=== PATIENT | female | born 1950 | race Caucasian/White ===

== ENCOUNTER 2017-05-19 22:04 | Inpatient (IN) | payer OTHER ==
[~2017-05-19] VITALS: Ht 152.4 cm; Wt 83.9 kg
[~2017-05-19 22:04] MED LIST: ABILIFY 5 MG TAB5 MG PO; ALEVE220 MG PO; BAYER CHEWABLE81 MG PO; CREON DR 12,001 EACH PO; CRESTOR5 MG PO; CYMBALTA60 MG PO; FENTANYL PATCH75 MCG TRANSDERM; FUROSEMIDE 20 M20 M1 PO; HYDROCHLOROTHIA25 M2 PO; HYDROCODONE-AP1 EAC6 PO; HYDROCODONE-APA1 TA1 PO; LIDODERM1 EACH TRANSDERM; MYRBETRIQ25 MG PO; NAPROSYN500 MG PO; NEURONTIN100 MG PO; NORCO 7.5-3251 EACH PO; OMEPRAZOLE20 M2 PO; OXYCODONE HCL10 MG PO; POTASSIUM20 PO; ROBAXIN 750 MG750 M1 PO; VITAMIN D1000 UNI1 PO
[2017-05-19 22:08] VITALS: BP 123/78
[2017-05-19] MEDS ORDERED: LEVAQUIN 500 M500 M2 (22:26)
[2017-05-19 22:53] LABS: HEMATOCRIT 44.1 % (37.0-47.0); MCHC 34.1 g/dL (28.0-37.0); MCV 99.6 fL (80.0-100.0); MPV 8.4 fl. (7.2-11.1); NUCLEATED RBCS 0 /100WBC; PLATELET COUNT* 132 thou/uL (150-400); RBC 4.42 mil/uL (4.20-5.00); RDW-CV 14.2 % (10.5-14.5); WBC 4.2 thou/uL (4.0-11.0)
[2017-05-19 23:09] LABS: INFLUENZA A ANTIGEN None Detected (None Detect); INFLUENZA B ANTIGEN None Detected (None Detect)
[2017-05-19 23:17] LABS: NT-PRO BRAIN NAT PEPTIDE 108 pg/mL (<300); TROPONIN-I LEVEL <0.06 ng/mL (<0.06)
[2017-05-19 23:28] LABS: ANION GAP 6 mmol/L (7-16); BUN 12 mg/dL (7-18); CALCIUM 9.9 mg/dL (8.5-10.1); CHLORIDE 102 mmol/L (98-107); CO2 29 mmol/L (21-32); CREATININE 0.8 mg/dL (0.6-1.3); GLUCOSE 103 mg/dL (70-99); POTASSIUM 4.1 mmol/L (3.5-5.1); SODIUM 137 mmol/L (136-145)
[2017-05-19 23:42] LABS: ALBUMIN 3.2 g/dL (3.4-5.0); ALKALINE PHOSPHATASE 71 U/L (46-116); SGOT 18 U/L (15-37); SGPT 16 U/L (30-65); TOTAL BILIRUBIN 0.4 mg/dL (<0.1-1.0); TOTAL PROTEIN 6.2 g/dL (6.4-8.2)
[2017-05-19 23:43] LABS: URINE BILIRUBIN NEGATIVE (Negative); URINE BLOOD 1+ (Negative); URINE CLARITY CLEAR; URINE COLOR STRAW; URINE GLUCOSE-RANDOM NEGATIVE (Negative); URINE KETONES NEGATIVE (Negative); URINE LEUKOCYTES-REFLEX NEGATIVE (Negative); URINE NITRITE-REFLEX NEGATIVE (Negative); URINE PROTEIN NEGATIVE (Negative); URINE UROBILINOGEN 0.2 E.U./dl (0.2-1.0)
[2017-05-20 00:07] LABS: ABSOLUTE LYMPHOCYTES 0.3 thou/uL (0.8-5.3); ABSOLUTE MONOCYTES 0.2 thou/uL (0.0-1.2); ABSOLUTE NEUTROPHILS 3.7 thou/uL (1.6-8.1)
[2017-05-20 00:12] LABS: PLATELET ESTIMATE DECREASED
[2017-05-20 00:14] LABS: CASTS None Seen /LPF (None Seen); SQUAMOUS 4-10 Moderate /LPF (0-3)
[2017-05-20 00:15] LABS: CRYSTALS None Seen /LPF (None Seen); URINE RBC 3-10 Few /HPF (0-2); URINE WBC-REFLEX None Seen /HPF (0-5)
[2017-05-20 02:50] LABS: ABSOLUTE LYMPHOCYTES 0.4 thou/uL (0.8-5.3); ABSOLUTE MONOCYTES 0.1 thou/uL (0.0-1.2); ABSOLUTE NEUTROPHILS 4.7 thou/uL (1.6-8.1); BASOPHILS 0.4 %; HEMATOCRIT 42.9 % (37.0-47.0); HEMOGLOBIN 14.6 gm/dL (12.0-15.0); LYMPHOCYTES 7.1 %; MCH 34.1 pg (26.0-34.0); MCV 100.2 fL (80.0-100.0); MONOCYTES 2.5 %; MPV 8.7 fl. (7.2-11.1); NUCLEATED RBCS 0 /100WBC; PLATELET COUNT* 132 thou/uL (150-400); RBC 4.29 mil/uL (4.20-5.00); RDW-CV 14.2 % (10.5-14.5); WBC 5.2 thou/uL (4.0-11.0)
[2017-05-20 03:03] LABS: CALCIUM 9.7 mg/dL (8.5-10.1); CREATININE 0.8 mg/dL (0.6-1.3); POTASSIUM 3.4 mmol/L (3.5-5.1)
[2017-05-20 03:07] LABS: ALBUMIN 3.1 g/dL (3.4-5.0); TOTAL BILIRUBIN 0.3 mg/dL (<0.1-1.0); TOTAL PROTEIN 6.3 g/dL (6.4-8.2)
[2017-05-20 03:46] VITALS: BP 125/66
[2017-05-20 07:23] VITALS: BP 102/58
[2017-05-20 08:32] VITALS: BP 112/66
[2017-05-20 09:02] VITALS: BP 112/66
--- NOTE | 2017-05-20 09:14 | NUR ---
PATIENT ADMITTED FROM ER TO ROOM 101. ALERT AND ORIENTED. DENIES PAIN CURRENTLY BUT HAS BEEN HAVING BACK PAIN. O2 AT 2L. SAT 95%. VSS. AMBULATED STANDBY ASSIST TO BATHROOM AND VOIDED. BREAKFAST ORDERED. ADMISSION HISTORY AND ASSESSMENT CHARTED. ORIENTED TO ROOM AND BED CONTROLS. CALL LIGHT WITHIN REACH. WILL CONTINUE TO MONITOR.
--- NOTE | 2017-05-20 11:15 | NUR ---
PATIENTS DAUGHTER BROUGHT HER HOME MEDS AND GAVE THEM TO PATIENT WITHOUT NURING KNOWING. DAUGHTER INSTRUCTED TO TAKE MEDICATIONS HOME.
--- NOTE | 2017-05-20 16:33 | NUR ---
PATIENT REMAINS ALERT AND ORIENTED. BACK PAIN CONTROLLED WITH OXYCODONE. O2 AT 2L. SOB WITH EXERTION. SAT 93% ON 2L. USING BSC DUE TO SOB. IVF INFUSING ORDERED. LOW GRADE TEMP THIS EVENING 99.4. TOLERATING MEALS. SITTING EDGE OF BED VISITING WITH FAMILY. CALL LIGHT WITHIN REACH. WILL CONTINUE TO MONITOR.
--- NOTE | 2017-05-20 16:36 | EKG ---
[place] [address] ELECTROCARDIOGRAM REPORT Name: CASSANDRADMITRY Waldo Room: [address] ADM IN [facility].#: [id number] Admission: 05/20/17 Attend Phys: Shreya Santana MD Discharge: Date of : 52 Report #: [id number] THIS REPORT FOR: //name// 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: : 1950 Requested By: Lizette Nguyen Order Number: [id number] MD: Lawson Mauro Measurements Intervals [place] Rate: 89 P: 52 NE: 161 QRS: 55 QRSD: 95 T: 52 QT: 361 QTc: 440 Interpretive Statements Sinus rhythm Borderline low voltage, extremity leads Compared to ECG 01/03/2016 15:39:40 No significant changes Electronically Signed On 05-20-2017 16:36:31 D[employer]ER [employer]AMP[employer] by Lawson Mauro [email or web address] <ELECTRONICALLY SIGNED> By: Lawson Mauro MD, [facility] 05/20/17 1636 [id number] [id number] Lawson Mauro MD, FAC /EPI
[2017-05-20 16:51] VITALS: BP 118/74
[2017-05-20 21:15] VITALS: BP 117/69
[2017-05-21 00:11] VITALS: BP 123/82
[2017-05-21 03:55] VITALS: BP 140/69
[2017-05-21 04:47] LABS: ABSOLUTE LYMPHOCYTES 0.9 thou/uL (0.8-5.3); ABSOLUTE MONOCYTES 0.4 thou/uL (0.0-1.2); ABSOLUTE NEUTROPHILS 6.6 thou/uL (1.6-8.1); BASOPHILS 0.1 %; HEMATOCRIT 43.4 % (37.0-47.0); HEMOGLOBIN 14.9 gm/dL (12.0-15.0); LYMPHOCYTES 10.9 %; MCH 34.1 pg (26.0-34.0); MCHC 34.4 g/dL (28.0-37.0); MCV 99.2 fL (80.0-100.0); MONOCYTES 4.9 %; NUCLEATED RBCS 0 /100WBC; PLATELET COUNT* 133 thou/uL (150-400); POLYS 84.1 %; RBC 4.37 mil/uL (4.20-5.00); RDW-CV 14.4 % (10.5-14.5); WBC 7.8 thou/uL (4.0-11.0)
[2017-05-21 04:51] LABS: CALCIUM 9.9 mg/dL (8.5-10.1); CREATININE 0.7 mg/dL (0.6-1.3); POTASSIUM 4.4 mmol/L (3.5-5.1)
--- NOTE | 2017-05-21 04:58 | NUR ---
PATIENT ALERT AND ORIENTED. VITALS STABLE. ON 3.5 LITERS OF OXYGEN. STATES SOB WITH EXERTION. VOIDS PER BSC. OXYCODONE GIVEN FOR CHRONIC BACK PAIN. NONPRODUCTIVE COUGH. RIGHT FOREARM IV, SALINE LOCKED. HOURLY ROUNDS. NURSING WILL CONTINUE TO MONITOR.
[2017-05-21 08:00] VITALS: BP 121/74
[2017-05-21 16:25] VITALS: BP 109/71
--- NOTE | 2017-05-21 19:44 | NUR ---
PATIENT REMAINED ALERT AND ORIENTED X'S 4. VITAL SIGNS AND SPO2 STABLE. IV CLEAN, FLUSHING. SKIN LOOKS GOOD. TOLERATED DIET, NO NAUSEA AND VOMITING. BREATHING TREATMENTS COMPLETED. CALL LIGHT WITHIN REACH. WILL CONTINUE TO MONITOR.
[2017-05-22 03:37] VITALS: BP 120/74
[2017-05-22 03:42] LABS: ABSOLUTE LYMPHOCYTES 0.6 thou/uL (0.8-5.3); ABSOLUTE MONOCYTES 0.3 thou/uL (0.0-1.2); BASOPHILS 0.1 %; HEMATOCRIT 43.2 % (37.0-47.0); HEMOGLOBIN 14.9 gm/dL (12.0-15.0); LYMPHOCYTES 8.6 %; MCH 33.9 pg (26.0-34.0); MCHC 34.6 g/dL (28.0-37.0); MCV 97.9 fL (80.0-100.0); MONOCYTES 4.2 %; MPV 8.9 fl. (7.2-11.1); NUCLEATED RBCS 0 /100WBC; PLATELET COUNT* 154 thou/uL (150-400); POLYS 87.1 %; RBC 4.41 mil/uL (4.20-5.00); RDW-CV 13.9 % (10.5-14.5); WBC 6.9 thou/uL (4.0-11.0)
[2017-05-22 03:52] LABS: CALCIUM 10.6 mg/dL (8.5-10.1); CREATININE 0.8 mg/dL (0.6-1.3); POTASSIUM 5.2 mmol/L (3.5-5.1)
--- NOTE | 2017-05-22 04:41 | NUR ---
PATIENT ALERT AND ORIENTED X4. MEDICATED FOR PAIN X1 WITH PARTIAL EFFECT REPORTED. UP AD NEEL. VITALS STABLE ON 3.5L O2 NC. WILL CONTINUE TO MONITOR.
[2017-05-22 08:05] VITALS: BP 122/75
--- NOTE | 2017-05-22 12:27 | CON ---
[address] [address] CONSULTATION Name: DMITRY TRUJILLO Room: [address] IN .R.#: [id number] Admission: 05/20/17 Attend Phys: Shreya Santana MD Discharge: Date of : 52 Report #: [id number] THIS REPORT FOR: //name// CC: Magen Santana REQUESTING PHYSICIAN: Dr. Magen Tobias. REASON FOR CONSULTATION: COPD exacerbation, possible pneumonia. DISCUSSION: The patient is a 67-year-old woman who carries a diagnosis of COPD. She has a long history of ongoing tobacco abuse. She became ill over the last week or so, had developed cough. She was seen in Dr. Hyde' office and thought she had pneumonia. She was given antibiotics. Arrangements were also made for her to get a nebulizer. She did get the nebulizer, but did not yet picker tender helper the medication for the machine. She became extremely dyspneic, was having trouble breathing to the point she was afraid to go to sleep, so she presented to the Emergency Room on the evening of 05/19/2017. She was evaluated there. Subsequently, was admitted. Today, she is already feeling much better. She has a long history of tobacco abuse. She continued to smoke at least a pack of cigarettes per day. There are other smokers at home as well. She has never had any spirometry or PFTs. She notes at baseline she does have some dyspnea with exertion and some occasional cough. However, she has not felt like it has kept her from doing activities that she wanted to do. 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 She has had the Pneumovax, had the Prevnar 13 last month and has had the flu shot for this season. She has had no recent travel, but she does know one of her coworkers was ill with pneumonia last month. There is a dog at home, but no exotic pets. She was out visiting in [place] a couple of months ago when she went to visit her brother. Her history is also remarkable for obstructive sleep apnea. She has been on CPAP for years. She notes she originally had seen me in the office probably at least 15 years ago at which time her original sleep study was done. She has been compliant with using her CPAP. She went without insurance for several years and did not have one during that time, but she was able to get back on it again. She did have a sleep study done last summer. PAST MEDICAL HISTORY: Besides the COPD and obstructive sleep apnea (per prior sleep study is supposed to be on 9 cm of water pressure with O2 at 1.5 liters) remarkable for history of GERD, bilateral knee replacements, lumbar laminectomies, hysterectomy, cholecystectomy and anxiety. She did have a recent cardiac evaluation done with Dr. [place] [address] CONSULTATION Name: CASSANDRARAFAELDMITRY L Room: [address] IN [facility]#: [id number] Admission: 05/20/17 Attend Phys: Shreya Santana MD Discharge: Date of : 52 Report #: [id number] SOCIAL HISTORY: Smoker as noted. 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 FAMILY HISTORY: Positive for heart disease, strokes as well as COPD. REVIEW OF SYSTEMS: Of note, positives above. She denies any recent GI symptoms with this acute illness. May have had low-grade fevers at home, just over 99. No syncopal episodes. No chest pain. No hemoptysis, no blood in her stools. Weight has been stable. She does note she feels much better when she is able to sleep with her CPAP. However, she became acutely ill, was more short of breath, the CPAP did not offer her much benefit, she tried to use acutely. PHYSICAL EXAMINATION: GENERAL APPEARANCE: Woman who looks stated age. Alert, cooperative, in no acute distress. HEENT: Head is normocephalic. Sclerae are nonicteric. Mucous membranes are moist. NECK: Negative for adenopathy. No JVD is noted. HEART: Regular rate and rhythm. No murmur or gallop is heard. LUNGS: Sounds are little distant. Lungs show breath sounds are mildly diminished with a prolonged expiratory phase. Bibasilar crackles are heard. No wheezing is heard. There is no dullness to percussion. No E to A changes. ABDOMEN: Soft, without appreciable hepatosplenomegaly. EXTREMITIES: She has no clubbing. Lower extremities are negative for edema. No calf tenderness. She does have well-healed scars present over both knees bilaterally. SKIN: Warm and dry. NEUROLOGIC: She is alert and oriented x 3. Moving all extremities well. Affect appears normal and judgment appears intact. LABORATORY AND X-RAY FINDINGS: Chest x-ray was reviewed. No acute findings are noted. She had a CT angiogram done of her chest. Motion artifact is noted. No definite pulmonary emboli is seen. Does have some very mild ground glass opacities noted primarily on the right side. It is not clear how much is motion artifact, fibrosis or some acute infiltrates. Her influenza screen was negative. No respiratory viral panel has been done. Potassium 4.4, BUN of 10, creatinine of 0.7, albumin was 3.1. ProBNP 108. White blood cell count 7800, hemoglobin 14.9, hematocrit 43.4, platelets 133,000. Blood cultures have been sent. Those results are negative to date. Urine culture is pending as well. A plain UA had showed 10-30 bacteria. IMPRESSION: 1. Lower respiratory tract infection with chronic obstructive pulmonary disease exacerbation. 2. Hypoxic respiratory failure. 3. Chronic obstructive pulmonary disease, severity [place] [address] CONSULTATION Name: DMITRY TRUJILLO Room: [address] IN [facility]#: [id number] Admission: 05/20/17 Attend Phys: Shreya Santana MD Discharge: Date of : 52 Report #: [id number] probably has [id number] disease. 4. Ongoing tobacco abuse. 5. Obstructive sleep apnea. She has been compliant with CPAP at home. RECOMMENDATIONS: 1. I agree with current regimen. She is receiving IV steroids, neb treatments every 4 hours. Agree with Levaquin. 2. Wean O2 as able. 3. Someone is bringing in her home CPAP unit. Continue sleep with that at night. 4. If improvement continues, can hopefully be discharged in the next 1-2 days. 5. Long-term smoking cessation is imperative. 6. Consider full pulmonary function studies in the future once she is over this acute event. 7. She can also have followup in our office in the future as well. Discussed with her. <ELECTRONICALLY SIGNED> By: Elba Verduzco MD 05/22/17 1227 1142 [id number] Paulson MD /nt
--- NOTE | 2017-05-22 12:45 | NUR ---
PATIENT LEFT UNIT BY WHEELCHAIR WITH TRANSPORTATION AT 1245 FOR [facility]. IV DC'D. ALL BELONGINGS LEFT WITH PATIENT. EDUCATED PATIENT AND DAUGHTER ON DISCHARGE INSTRUCTIONS AND NEW MED SCRIPTS. PATIENT AND DAUGHTER VERBALIZED UNDERSTANDING.
--- NOTE | 2017-05-22 14:04 | NUR ---
P.T. ORDERS RECEIVED. CHART REVIEWED. NSG NOTES INDICATE PT UP AD NEEL. NSG AND TEMPER MILL OPERATOR CONFIRMED SAME. TEMPER MILL OPERATOR REPORTED PT RECENTLY AMB OUT OF VENDING MACHINES, TEMPER MILL OPERATOR ASSISTED WITH O2. NO ACUTE P.T. INTERVENTION INDICATED.
--- NOTE | 2017-05-22 15:01 | NUR ---
ORDERS RECEIVED 05/22/17 FOR OT EVAL AND TREAT, PATIENT IS UP IN ROOM AD NEEL WITH NO DIFFICULTY. PER P.T. AND NURSING, NO SKILLED SERVICES INDICATED. SKILLED OT TO BE DISCHARGED AT THIS TIME, THANK YOU FOR THIS REFERRAL.
--- NOTE | 2017-05-22 16:33 | NUR ---
PATIENT REMAINED ALERT AND ORIENTED X'S 4. VITAL SIGNS AND SPO2 STABLE. IV CLEAN, FLUSHING. RECIEVED BREATHING TREATMENTS. TOLEREATED DIET, NO NAUSEA AND VOMITING. VOIDED AND PASSED BM WITHOUT ISSUE. WALKED THE HALLS MULTIPLE TIMES TODAY. COMPLETED HOURLY ROUNDING. CALL LIGHT WITHIN REACH. WILL CONTINUE TO MONITOR.
[2017-05-22 16:52] VITALS: BP 136/87
--- NOTE | 2017-05-22 17:05 | NUR ---
CM ASSESSMENT: Pt is A&O. Resides at home with friends. Independent with ADLs, continues to cook, clean, drive, work outside of the home. Pt has o2 with her cpap, and neb at home through [employer]. Hx of HH. No hx of Snf. Pt states that she is scheduled to have an ex ox tomorrow to determine if she will need o2 with activity. Pt is checking with her employer to determine if she will be able to return with o2, if qualified. Goal is to return home. Following.
[2017-05-22 23:58] VITALS: BP 119/75
--- NOTE | 2017-05-23 04:00 | NUR ---
PATIENT RESTING QUIETLY THIS AM ON HOURLY ROUNDS. UP AD NEEL IN HALLWAYS, TOLERATED WELL. MEDICATED FOR BACK PAIN X1 PARTIAL EFFECT REPORTED. VITALS SIGNS STABLE. WILL CONTINUE TO MONITOR.
[2017-05-23 04:18] VITALS: BP 153/58
[2017-05-23 08:00] VITALS: BP 105/65
[2017-05-23] MEDS ORDERED: PREDNISONE 10 M10 MG PO (11:34)
[2017-05-23 11:46] VITALS: BP 105/65
--- NOTE | 2017-05-23 14:09 | NUR ---
PATIENT LEFT UNIT BY WHEELCHAIR WITH NURSING STAFF AT 1400. IV DC'D. EDUCATED PATIENT AND ON NEW MED SCRIPTS AND DISCHARGE INSTRUCTIONS. PATIENT AND VERBALIZED UNDERSTANDING. ALL BELONGINGS LEFT WITH PATIENT.
[2017-05-23 14:10] VITALS: BP 105/65
[2017-05-27 14:09] LABS: ADENOVIRUS Negative (Negative); INFLUENZA A Positive (Negative); INFLUENZA B Negative (Negative); METAPNEUMOVIRUS Negative (Negative); PARAINFLUENZA 1 Negative (Negative); PARAINFLUENZA 2 Negative (Negative); PARAINFLUENZA 3 Negative (Negative); RHINOVIRUS Negative (Negative); RSV A Negative (Negative); RSV B Negative (Negative)
== END 2017-05-23 14:11 | disposition home or self-care (01) | DRG 177 ==
LOC: M.ERS 22:04 → M.TBA-ER 05-20 01:02 → M.ORTHSURG 05-20 01:02
PROVIDERS: Emergency Medicine; Internal Medicine; Internal Medicine Pulmonary Disease; ADMIT Internal Medicine
DX: J15.6 Pneumonia due to other Gram-negative bacteria (principal); J96.21 Acute and chronic respiratory failure with hypoxia; J44.1 Chronic obstructive pulmonary disease with (acute) exacerbation; J44.0 Chronic obstructive pulmonary disease with (acute) lower respiratory infection; G47.33 Obstructive sleep apnea (adult) (pediatric); F17.210 Nicotine dependence, cigarettes, uncomplicated; J40 Bronchitis, not specified as acute or chronic; M19.90 Unspecified osteoarthritis, unspecified site; Z96.653 Presence of artificial knee joint, bilateral; Z90.49 Acquired absence of other specified parts of digestive tract; Z90.710 Acquired absence of both cervix and uterus; Z79.2 Long term (current) use of antibiotics; Z79.899 Other long term (current) drug therapy; Z79.1 Long term (current) use of non-steroidal anti-inflammatories (NSAID); Z79.82 Long term (current) use of aspirin; Z82.49 Family history of ischemic heart disease and other diseases of the circulatory system; Z82.3 Family history of stroke; Z82.5 Family history of asthma and other chronic lower respiratory diseases

== ENCOUNTER → 2017-06-18 | Outpatient (CLI) | payer OTHER ==
[~2017-06-18] MED LIST changes: +LEVAQUIN 500 M500 M2; +PREDNISONE 10 M10 MG PO
--- NOTE | 2017-06-23 07:21 | PAINCON ---
[facility] [address] [place] [address] PAIN MANAGEMENT CONSULTATION Name: CASSANDRADMITRY Waldo [id number] Admission: 06/18/17 Attend Phys: Inez Gibbons Discharge: Date of : 52 Report #: [id number] THIS REPORT FOR: //name// CC: Madeleine Booker The patient is a pleasant 67-year-old female prior seen in the pain clinic back in March. We did a left SI joint injection with good improvement of baseline pain; in fact she notes she was nearly pain free until she fell several weeks after that striking her left hip. She has had ongoing pain in this area since. In the interval since we saw her, she was hospitalized 05/20 through 05/23 with COPD and pneumonitis. She does continue to smoke. Today notes pleasant 67-year-old female rating her subjective pain score 7 on a VAS. Pain is in the left buttock and hip. Again notes she had 100% relief with the injection until she fell. States she had actually fallen last week moving her leg in an awkward position, acute exacerbation of pain, which has been quite problematic and interfering with function. She continues oxycodone 10 mg q. 8 hours for pain, Cymbalta 60 mg daily and gabapentin 200 mg at bedtime. PHYSICAL EXAMINATION: Shows a 5 feet tall, 186 pound, 67-year-old female, BMI is 36.4 kilograms per meter squared. Blood pressure 123/71, pulse 84 and respirations 16. Rises from chair using armrest. Very tender in the left SI. Positive Patsy test. Positive Gaenslen's. Straight leg raise is negative. Decreased strength in the left leg though this is more secondary to pain in the SI area. ASSESSMENT: Symptomatic sacroiliac joint dysfunction by clinical exam and history, excellent relief following prior injection back in March. RECOMMENDATION: After discussion with the patient today, it was elected to move forward with authorization for left SI joint injection under fluoroscopy. If this affords only transient relief, we will move forward with a diagnostic block (SI joint injection under fluoroscopy sans steroid). If this affords transient relief, we will refer for consideration for percutaneous SI joint fusion. The patient discharged in good stable condition today. We will seek authorization for left SI joint injection under fluoroscopy at next visit. <ELECTRONICALLY SIGNED> By: Matt Booker DO 06/23/17 0721 1306 [id number] Booker DO /nt
== END ==
LOC: M.PC 02:53
DX: M25.552 Pain in left hip (principal); M53.3 Sacrococcygeal disorders, not elsewhere classified; J44.9 Chronic obstructive pulmonary disease, unspecified; J18.9 Pneumonia, unspecified organism

== ENCOUNTER 2018-02-27 13:21 | Outpatient (CLI) | payer OTHER ==
[~2018-02-27] VITALS: Ht 152.4 cm; Wt 87.5 kg
[2018-02-27 13:50] LABS: ABSOLUTE EOSINOPHILS 0.1 thou/uL (0.0-0.7); ABSOLUTE LYMPHOCYTES 1.6 thou/uL (0.8-5.3); ABSOLUTE MONOCYTES 0.3 thou/uL (0.0-1.2); ABSOLUTE NEUTROPHILS 4.1 thou/uL (1.6-8.1); BASOPHILS 0.8 %; EOSINOPHILS 1.7 %; HEMATOCRIT 42.5 % (37.0-47.0); HEMOGLOBIN 14.5 gm/dL (12.0-15.0); MCH 33.3 pg (26.0-34.0); MONOCYTES 5.1 %; MPV 8.2 fl. (7.2-11.1); NUCLEATED RBCS 0 /100WBC; PLATELET COUNT* 181 thou/uL (150-400); POLYS 66.4 %; RBC 4.34 mil/uL (4.20-5.00); RDW-CV 13.3 % (10.5-14.5); WBC 6.2 thou/uL (4.0-11.0)
[2018-02-27 13:59] LABS: ANION GAP 2 mmol/L (7-16); BUN 12 mg/dL (7-18); CALCIUM 8.5 mg/dL (8.5-10.1); CHLORIDE 105 mmol/L (98-107); CO2 31 mmol/L (21-32); CREATININE 0.9 mg/dL (0.6-1.3); GLUCOSE 83 mg/dL (70-99); POTASSIUM 4.1 mmol/L (3.5-5.1); SODIUM 138 mmol/L (136-145)
[2018-02-27 14:01] LABS: PROTIME 9.9 Seconds (9.20-11.50)
[2018-02-27 14:09] LABS: ALBUMIN 3.2 g/dL (3.4-5.0); ALKALINE PHOSPHATASE 53 U/L (46-116); NT-PRO BRAIN NAT PEPTIDE 86 pg/mL (<300); SGOT 8 U/L (15-37); SGPT 14 U/L (30-65); TOTAL BILIRUBIN 0.4 mg/dL (<0.1-1.0); TOTAL PROTEIN 6.7 g/dL (6.4-8.2); TROPONIN-I LEVEL <0.06 ng/mL (<0.06)
[2018-02-27 15:33] VITALS: BP 136/80
--- NOTE | 2018-02-27 18:13 | EKG ---
[place] [address] ELECTROCARDIOGRAM REPORT Name: DMITRY TRUJILLO Room: [facility]#: [id number] Admission: 02/27/18 Attend Phys: Easton Hilton MD Discharge: Date of : 52 Report #: [id number] THIS REPORT FOR: //name// 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 02/27/18 1813 1325 1325 Sergei Mata MD, FACC /EPI
== END 2018-02-27 15:33 ==
LOC: M.CT 13:30 → M.ERS 15:33
PROVIDERS: Emergency Medicine
DX: I26.99 Other pulmonary embolism without acute cor pulmonale (principal); R06.02 Shortness of breath; J44.9 Chronic obstructive pulmonary disease, unspecified; Z87.891 Personal history of nicotine dependence

== ENCOUNTER → 2018-05-28 | Outpatient (CLI) | payer OTHER | LOC: M.RAD 14:11 | DX: J44.9 Chronic obstructive pulmonary disease, unspecified (principal); R06.02 Shortness of breath ==

== ENCOUNTER → 2018-10-20 | Outpatient (CLI) | payer OTHER | LOC: M.RAD 10:57 | DX: R06.02 Shortness of breath (principal) ==

== ENCOUNTER → 2018-12-08 | Outpatient (CLI) | payer OTHER ==
[~2018-12-08] MED LIST changes: +CALCIUM 600 +1 EAC1 PO; +CHANTIX1 MG PO; +CRESTOR10 MG PO; -CRESTOR5 MG PO; +HYDROXYZINE HCL25 M2 PO; +IPRAT-ALBUT 0.5-3 ML INH; +KLOR-CON M2020 MEQ PO; +METOLAZONE 5 MG5 MG PO; +MUPIROCIN22 GM TOP; +SINGULAIR 10 MG10 M1 PO; +TRIAMCINOLONE A80 G2 TOP; +VENTOLIN HFA 1818 GM INH; +ZAROXOLYN 5MG TA5 MG PO
--- NOTE | ~2018-12-08 | PAINCON ---
[address] [address] PAIN MANAGEMENT CONSULTATION Name: DMITRY TRUJILLO Room: [facility] Joanna.#: [id number] Admission: 12/08/18 Attend Phys: Janel Dueñas MD Discharge: Date of : 52 Report #: [id number] THIS REPORT FOR: //name// CC: Madeleine Dueñas DATE OF SERVICE: 12/08/2018 CHIEF COMPLAINT: "Low back pain and problems with my SI joint." HISTORY: The patient is a 68-year-old female who has been seen in the past in the pain clinic by Dr. Matt Booker. This is my first visit with the patient. She states that she has been having pain in the lower portion of her back. It involves the left side. The pain has been quite problematic. It wakes her from sleep. She has difficulty sleeping, walking and engaging in activities of daily living without significant pain. She does work. She has been off from work on disability for some time. She has spent time in the hospital because of illness. She states she has about 4 weeks of work left before she retires. 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 The patient states that over the years sacroiliac joint injections have been the most beneficial treatment so far. She would like to undergo another injection involving the left hip area. ALLERGIES: PENICILLIN, IODINE. CURRENT MEDICATIONS: Albuterol 1-2 puffs q.4-6 hours p.r.n., Abilify 5 mg for mood, calcium carbonate/vitamin D3, Cymbalta 60 mg for mood and anxiety, Lasix 20 mg, Neurontin 100 mg, hydrochlorothiazide 25 mg, hydrocodone 7.5 mg/325 mg q.6 hours p.r.n., hydroxyzine 25 mg, ipratropium/albuterol 4 times daily, metolazone 5 mg, Singulair 10 mg, mupirocin 1 tube ointment, omeprazole 40 mg total, K-Dur 20 mEq, Crestor 10 mg, Aristocort to affected area, 2 times daily x 7, Chantix 1 mg. PAIN CLINIC ASSESSMENT AND PQRS: 1. History of osteoarthritis. The patient is not being treated for osteoarthritis or rheumatoid arthritis. 2. Height 5 feet 0 inches, weight 206 pounds, BMI is 40.8. 3. Vital Signs: Blood pressure is 136/69, heart rate 91, respiratory rate 20, room air saturation 93%, temperature is 98.5. 4. Pain intensity, 4/10. 5. Fall history. The patient has not fallen in the last 3 months. 6. Blood thinner. The patient is not on a blood thinning medication. 7. Hypertension. The patient is being treated for hypertension. 8. Opioids. The patient received opioids [place] [address] PAIN MANAGEMENT CONSULTATION Name: CASSANDRADMITRY LEE Room: [facility]#: [id number] Admission: 12/08/18 Attend Phys: Janel Dueñas MD Discharge: Date of : 52 Report #: [id number] 9. Risk assessment tool, low for opioid use. 10. Functional assessment tool, low. 11. Recreational drug use. The patient denies use of recreational drugs. 12. Tobacco: The patient has tried to decrease smoking and has been using Chantix. 13. Alcohol: The patient denies frequent use of alcoholic beverages. PHYSICAL EXAMINATION: GENERAL: The patient is a well-developed, well-nourished, white female. Appears her stated age. She is alert and oriented x 3. Her affect is appropriate. Speech is fluent. HEENT: Normocephalic, atraumatic. Extraocular eye muscles intact. The patient is wearing glasses. Sclerae nonicteric. Mucous membranes are moist. NECK: Without adenopathy. HEART: Regular rate. ABDOMEN: Nontender. MUSCULOSKELETAL: Upper extremity muscle strength judged to be 5-/5 for the upper muscles. Lower extremity muscle strength 5-/5 for the major muscle groups in the lower extremity. The patient has pain and discomfort in the lower portion of her back with pain that is radiating down to the left hip with pain and discomfort consistent with sacroiliac joint dysfunction. The patient has a positive Al sign. Anterior and posterior spring tests are positive. The patient has pain that radiates down into the left low back area near the SI joint. Palpation in this area does reproduce a strong component of her pain. IMPRESSION: 1. Left sacroiliac joint dysfunction, improved with sacroiliac joint injections in the past. 2. History of lumbar radiculopathy. 3. Lumbosacral spondylosis. 4. Bilateral knee osteoplasty. 5. Back surgeries x 3. 6. Hysterectomy. RECOMMENDATIONS: We discussed treatment options with the patient. Risks and benefits of a SI joint injection were discussed. The patient will follow up in the near future, at which time she will then undergo an epidural injection. We would like to thank you for letting us participate in her care. We hope she continues to improve. By: [id number]. MD TAINA Patricia
== END ==
LOC: M.PC 05:04
DX: M47.27 Other spondylosis with radiculopathy, lumbosacral region (principal); M17.0 Bilateral primary osteoarthritis of knee; I10 Essential (primary) hypertension; M19.90 Unspecified osteoarthritis, unspecified site; Z87.891 Personal history of nicotine dependence; Z90.710 Acquired absence of both cervix and uterus; Z79.891 Long term (current) use of opiate analgesic; Z79.899 Other long term (current) drug therapy; Z88.0 Allergy status to penicillin; Z88.8 Allergy status to other drugs, medicaments and biological substances

== ENCOUNTER → 2018-12-15 | Outpatient (CLI) | payer OTHER ==
[~2018-12-15] MED LIST changes: +BREO ELLIPTA 11 EACH INH
== END | disposition home or self-care (01) ==
LOC: M.PC 05:01
DX: M53.3 Sacrococcygeal disorders, not elsewhere classified (principal); M47.897 Other spondylosis, lumbosacral region; I10 Essential (primary) hypertension; Z98.890 Other specified postprocedural states; Z90.710 Acquired absence of both cervix and uterus; Z88.8 Allergy status to other drugs, medicaments and biological substances; Z88.0 Allergy status to penicillin; Z79.899 Other long term (current) drug therapy; Z44.9 Encounter for fitting and adjustment of unspecified external prosthetic device

== ENCOUNTER → 2019-02-25 | Outpatient (CLI) | payer OTHER | LOC: M.RAD 13:20 | DX: Z12.31 Encounter for screening mammogram for malignant neoplasm of breast (principal) ==

== ENCOUNTER → 2020-03-14 | Outpatient (CLI) | payer OTHER ==
[~2020-03-14] MED LIST changes: +KETOROLAC TROME10 MG PO; +PERCOCET 10-321 EAC1 PO
--- NOTE | ~2020-03-14 | PAINCON ---
[address] [address] PAIN MANAGEMENT CONSULTATION Name: DMITRY TRUJILLO Room: [facility].#: [id number] Admission: 03/14/20 Attend Phys: Janel Dueñas MD Discharge: Date of : 52 Report #: [id number] THIS REPORT FOR: //name// cc: Madeleine Hyde MD, Katrina MD ~ CC: Madeleine Dueñas DATE OF SERVICE: 03/14/2020 CHIEF COMPLAINT: Right-sided low back pain. HISTORY: The patient is a 69-year-old female who has been seen in past because of sacroiliac joint dysfunction. She has a history of lumbar radiculopathy. She has undergone 3 back surgeries. At this juncture, her pain has increased. About 3-4 weeks ago, she fell in the shower on her tailbone. She is having pain radiating down the right leg and into her back. She has had some numbness on the top of her leg. She has tried pain medications. They generally last about 45 minutes. Notes that her pain is exacerbated by walking and other activities such as standing, bending, and lifting. She has returned to the pain clinic with hopes of undergoing treatment to help decrease the pain and discomfort. ALLERGIES: PENICILLIN, IODINE. CURRENT MEDICATIONS: Albuterol 1 puff q.4 hours, Abilify 5 mg, calcium carbonate, vitamin D, Cymbalta 60 mg, Lasix 20 mg, Neurontin has been used in the past 100 mg, hydrochlorothiazide 25 mg, hydrocodone 7.5 mg, hydroxyzine 25 mg, ipratropium/albuterol 4 times daily, metolazone 5 mg, Singulair 10 mg, mupirocin, omeprazole 40 mg, K-Dur 20 mEq, Crestor 10 mg, Chantix in the past. PAIN CLINIC ASSESSMENT AND PQRS: 1. History of osteoarthritis. The patient has had surgery on 3 occasions in the low back area. 2. The patient is not being treated for rheumatoid arthritis. 3. Height 5 feet 0, weight 217 pounds, BMI 23. 4. Vital Signs: Blood pressure 111/74, heart rate 80, respiratory rate 16, room air saturation is 92%, temperature 97.7. 5. Pain score 10/10. 6. Fall history: The patient fell about 3-4 weeks ago in the shower onto her tailbone. 7. Blood thinner. The patient is not on a blood thinning medication. 8. Hypertension. The patient is not being treated for hypertension. 9. Opioids. The patient has used hydrocodone in the past. 10. Opioid use, moderate. 11. Functional assessment tool reviewed. 12. Recreational drug use: [place] [address] PAIN MANAGEMENT CONSULTATION Name: DMITRY TRUJILLO SEAN Room: [facility]#: [id number] Admission: 03/14/20 Attend Phys: Janel Dueñas MD Discharge: Date of : 52 Report #: [id number] 13. Tobacco: The patient is not smoking at this juncture. 14. Alcohol. The patient denies frequent use of alcoholic beverages. PHYSICAL EXAMINATION: GENERAL: The patient is a well-developed, well-nourished white female. Appears her stated age. She is alert and oriented x 3. Her affect is appropriate. Speech is fluent. The patient is wearing a facial covering. HEENT: Normocephalic, atraumatic. Extraocular eye muscles intact. Sclerae nonicteric. NECK: Without adenopathy or JVD. LUNGS: Generally clear. ABDOMEN: Nontender. MUSCULOSKELETAL: Upper extremity muscle strength judged to be 5-/5 for the major muscle groups in the upper extremity. Lower extremity, the patient has pain, 5-/5 for the major muscle groups in the lower extremity. The patient has pain and discomfort that radiates down and involves the right leg in the L3-L4 dermatomal distribution. IMPRESSION: 1. Pain and discomfort in the right L3-L4 dermatomal distribution. 2. History of lumbar radiculopathy. 3. Lumbosacral spondylosis. 4. Bilateral knee osteoplasty. 5. Back surgeries x 3. 6. Chronic pain. RECOMMENDATIONS: We discussed treatment options with the patient. At this juncture, we will proceed with a transforaminal epidural steroid injection. The patient has had surgery on 3 occasions. We discussed the risks and benefits of the procedure. They include but are not limited to infection, worsening pain, no improvement in pain, nerve damage, bleeding, and the patient elects to proceed. PROCEDURE NOTE: The patient was taken to the procedure area. She was then assisted in getting on the examination table. Her back was sterilely prepped with a Betadine solution. A 0.25% bupivacaine was infiltrated at the right L3-L4 interspace. Fluoroscopy was used to corroborate the appropriate placement of the needle. A 20-gauge spinal needle was then advanced into the area of the L3-L4 transforaminal area. There was no complaint of paresthesias. There was no bleeding. A total of 80 mg Depo-Medrol, 40 mg triamcinolone was injected. The patient tolerated the procedure well. There were no complications. She remained in the Pain Clinic for an appropriate amount of time. Total of approximately 24 seconds fluoroscopy time was used. The patient was also provided with pain medication. She was using hydrocodone. At this point, because of the severity of pain, we will try Percocet one p.o. t.i.d. A script for these medications have been provided. The [place] [address] PAIN MANAGEMENT CONSULTATION Name: DMITRY TRUJILLO Room: [facility]#: [id number] Admission: 03/14/20 Attend Phys: Janel Dueñas MD Discharge: Date of : 52 Report #: [id number] she has any concerns. The patient will follow up in the future. We would like to thank you for letting us participate in her care. We hope she continues to improve. By: 1508 [id number]. Chano Dueñas MD /nt
== END | disposition home or self-care (01) ==
LOC: M.PC 10:26
PROVIDERS: ATTEND Anesthesiology Pain Medicine
DX: M47.26 Other spondylosis with radiculopathy, lumbar region (principal); G89.29 Other chronic pain; Z98.890 Other specified postprocedural states; Z79.899 Other long term (current) drug therapy; Z79.891 Long term (current) use of opiate analgesic; Z88.0 Allergy status to penicillin; Z88.8 Allergy status to other drugs, medicaments and biological substances

== ENCOUNTER 2020-03-21 14:55 | Emergency (ER) | payer OTHER ==
[~2020-03-21] VITALS: Ht 152.4 cm; Wt 94.8 kg
[2020-03-21 15:17] LABS: ABSOLUTE BASOPHILS 0.1 thou/uL (0.0-0.2); ABSOLUTE EOSINOPHILS 0.1 thou/uL (0.0-0.7); ABSOLUTE LYMPHOCYTES 2.2 thou/uL (0.8-5.3); ABSOLUTE MONOCYTES 0.6 thou/uL (0.0-1.2); ABSOLUTE NEUTROPHILS 9.4 thou/uL (1.6-8.1); BASOPHILS 1.1 %; EOSINOPHILS 1.1 %; HEMATOCRIT 44.7 % (37.0-47.0); HEMOGLOBIN 15.9 gm/dL (12.0-15.0); LYMPHOCYTES 17.5 %; MCH 34.3 pg (26.0-34.0); MCHC 35.6 g/dL (28.0-37.0); MCV 96.5 fL (80.0-100.0); MONOCYTES 5.2 %; MPV 7.8 fl. (7.2-11.1); NUCLEATED RBCS 0 /100WBC; PLATELET COUNT* 268 thou/uL (150-400); POLYS 75.1 %; RBC 4.63 mil/uL (4.20-5.00); RDW-CV 15.3 % (10.5-14.5); WBC 12.5 thou/uL (4.0-11.0)
[2020-03-21 15:37] LABS: APTT 24.5 Seconds (25.0-31.3); CALCIUM 9.3 mg/dL (8.5-10.1); CREATININE 0.9 mg/dL (0.6-1.3); PROTIME 10.2 Seconds (9.20-11.50)
[2020-03-21 15:39] LABS: POTASSIUM 2.6 mmol/L (3.5-5.1)
[2020-03-21 15:49] LABS: ALBUMIN 3.5 g/dL (3.4-5.0); CK-MB MASS 1.6 ng/mL (<0.5-3.6); MAGNESIUM 1.5 mg/dL (1.8-2.4); TOTAL BILIRUBIN 0.6 mg/dL (<0.1-1.0); TOTAL PROTEIN 7.6 g/dL (6.4-8.2)
--- NOTE | 2020-03-21 16:17 | EKG ---
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1950 Requested By: Oscar Sellers Order Number: [id number] MD: Renny Courtney Measurements Intervals [place] Rate: 86 P: 49 [place]: 168 QRS: 52 QRSD: 104 T: 60 QT: 412 QTc: 493 Interpretive Statements Sinus rhythm Borderline prolonged QT interval Compared to ECG 02/27/2018 13:25:17 No significant changes Electronically Signed On 03-21-2020 16:17:10 RAKING MACHINE OPERATOR by Renny Courtney [email or web address] <ELECTRONICALLY SIGNED> By: Renny Courtney MD, [facility] 03/21/20 1617 1504 1504 Renny Courtney MD, FACC /EPI
[2020-03-21 17:29] VITALS: BP 102/62
== END 2020-03-21 17:30 | disposition home or self-care (01) ==
LOC: M.ERS 14:55
PROVIDERS: Family Medicine
DX: R07.89 Other chest pain (principal); E87.6 Hypokalemia; J44.9 Chronic obstructive pulmonary disease, unspecified; Z87.891 Personal history of nicotine dependence; Z88.0 Allergy status to penicillin; Z91.041 Radiographic dye allergy status; Z90.710 Acquired absence of both cervix and uterus; Z90.49 Acquired absence of other specified parts of digestive tract; Z96.653 Presence of artificial knee joint, bilateral

== ENCOUNTER → 2020-04-04 | Outpatient (CLI) | payer OTHER ==
--- NOTE | ~2020-04-04 | PAINCON ---
[address] [address] PAIN MANAGEMENT CONSULTATION Name: DMITRY TRUJILLO Room: [facility].R.#: [id number] Admission: 04/04/20 Attend Phys: Janel Dueñas MD Discharge: Date of : 52 Report #: [id number] THIS REPORT FOR: //name// cc: Madeleine Hyde MD, Katrina MD ~ CC: Madeleine Dueñas DATE OF SERVICE: 04/04/2020 CHIEF COMPLAINT: "The pain has been excruciating." HISTORY: The patient is a 69-year-old female who has been seen in the Pain Clinic because of right leg and thigh discomfort. The patient has had 3 back surgeries. At this point, she has had pain, which has been quite problematic and worsening over the last few months. She rates her pain as a 10/10 at this point. She is having such pain that she is unable to cook. She is unable to bathe. She stays in bed most of the time. She has gone to physical therapy on a couple of occasions. She did note some improvement with massage associated with the physical therapy. Later on in the day, her pain recurred and still has been quite problematic. She went to the Emergency Room since we saw her last. States that she was having some chest pain. After evaluation, no significant pathologic problem was noted. She was told that her potassium was somewhat low. She is unable to engage in activities of daily living because of the pain. She is contemplating going to her son's home for Thanksgiving. She is going to try and follow the CDC protocol for 6 feet separation and wearing a mask. States that her son has had COVID-19. He has returned to work. She has two grandchildren. She will keep her distance from them. ALLERGIES: PENICILLIN, IODINE. CURRENT MEDICATIONS: Albuterol 1 puff q. 4 hours, Abilify 5 mg, calcium carbonate, vitamin D, Cymbalta 60 mg, Lasix 20 mg, Neurontin, this has been used in the past and stopped about 2 years ago because of trouble breathing, hydrochlorothiazide 25 mg, Percocet 10/325 one p.o. t.i.d., hydroxyzine 25 mg, ipratropium/albuterol 4 times daily, metolazone 5 mg, Singulair 10 mg, Mupirocin, omeprazole 40 mg, K-Dur 20 mEq, Crestor 10 mg, Chantix has been used in the past. The patient continues to smoke. PAIN CLINIC ASSESSMENT/PQRS: 1. The patient has had surgery on 3 occasions in her low back area. The patient is not being treated for rheumatoid arthritis. 2. Height 5 feet 0, weight 206 pounds, BMI is 40. 3. Vital signs: Blood pressure 114/75, heart rate 78, respiratory rate 16, room air saturation is 94%, temperature 97.0. [place] [address] PAIN MANAGEMENT CONSULTATION Name: DMITRY TRUJILLO [id number] Admission: 04/04/20 Attend Phys: Janel Dueñas MD Discharge: Date of : 52 Report #: [id number] 4. Pain intensity is 10/10. 5. Fall history: The patient fell about 3-4 weeks ago on her tailbone. 6. Blood thinner. The patient is not on a blood thinning medication. 7. Hypertension. The patient is not being treated for hypertension. 8. Opioids. The patient uses oxycodone. 9. Opioids, moderate use. 10. Functional assessment tool reviewed. 11. Recreational drug use: The patient denies. 12. Tobacco: The patient continues to smoke. 13. Alcohol. The patient denies frequent use of alcoholic beverages. PHYSICAL EXAMINATION: GENERAL: The patient is a well-developed, well-nourished white female. Somewhat obese. She is alert and oriented x 3. She is wearing a facial covering. HEENT: Normocephalic, atraumatic. Extraocular eye muscles intact. Sclerae nonicteric. NECK: Without adenopathy or JVD. LUNGS: Decreased respiratory effort and decreased breath sounds. ABDOMEN: Nontender. MUSCULOSKELETAL: Upper extremity muscle strength judged to be 5-/5 for the major muscle groups in the upper extremity. The patient has pain and discomfort in the right leg with pain in the anterior L2-L3 area and states that it feels as though razor blades are in her leg when she rubs over it likely. IMPRESSION: 1. Pain and discomfort in the L3-L4 dermatomal distribution. 2. History of lumbar radiculopathy. 3. Lumbosacral spondylosis. 4. Bilateral knee osteoplasty. 5. Back surgery x 3. 6. Chronic pain. RECOMMENDATIONS: We discussed treatment options with the patient. The patient states that she is having an immense amount of pain. She is unable to care for herself. She is unable to bathe. She is unable to cook. She lies in bed most of the time. She does use oxygen up to 4 liters and uses CPAP. Has been using opioids for years. Feels that the hydrocodone medication was not very satisfactory and did not provide any significant benefit. Noted that the use of the oxycodone 10 mg was helpful when she was able to walk, cook, shower and perform activities of daily living. We will have the patient return to the Pain Clinic in a few days. We would then proceed with another transforaminal epidural steroid injection to help control the pain, which she is experiencing that is radiating down the medial portion of her right thigh. We will have the patient continue ____ with oxycodone 10 mg 1 p.o. approximately t.i.d. The patient will be given an additional 10 pills or 20 pills [place] [address] PAIN MANAGEMENT CONSULTATION Name: CASSANDRADMITRY LEE Room: [facility]#: [id number] Admission: 04/04/20 Attend Phys: Janel Dueñas MD Discharge: Date of : 52 Report #: [id number] providing an adequate amount of pain relief. A script for her medications has been provided and sent to her pharmacy. We would like to thank you for letting us participate in her care. By: 0922 [id number]. Chano Dueñas MD /roberto
== END ==
LOC: M.PC 08:27
PROVIDERS: ATTEND Anesthesiology Pain Medicine
DX: M47.817 Spondylosis without myelopathy or radiculopathy, lumbosacral region (principal); G89.29 Other chronic pain; Z96.653 Presence of artificial knee joint, bilateral; Z87.39 Personal history of other diseases of the musculoskeletal system and connective tissue; Z88.8 Allergy status to other drugs, medicaments and biological substances; Z79.899 Other long term (current) drug therapy

== ENCOUNTER → 2020-04-13 | Outpatient (CLI) | payer OTHER ==
[~2020-04-13] MED LIST changes: +ASA81BEC PO
== END | disposition home or self-care (01) ==
LOC: M.PC 08:44
PROVIDERS: ATTEND Anesthesiology Pain Medicine
DX: M54.16 Radiculopathy, lumbar region (principal); G89.29 Other chronic pain; F17.210 Nicotine dependence, cigarettes, uncomplicated; Z98.890 Other specified postprocedural states; Z79.899 Other long term (current) drug therapy; Z88.0 Allergy status to penicillin; Z88.8 Allergy status to other drugs, medicaments and biological substances

== ENCOUNTER → 2020-05-02 | Outpatient (CLI) | payer OTHER | LOC: M.PC 10:12 | PROVIDERS: ATTEND Anesthesiology Pain Medicine | DX: M47.897 Other spondylosis, lumbosacral region (principal); M54.16 Radiculopathy, lumbar region; M54.5 Low back pain; G89.29 Other chronic pain ==

== ENCOUNTER → 2020-11-27 | Outpatient (CLI) | payer OTHER | LOC: M.ULTRA 12:25 | PROVIDERS: ATTEND Nurse Practitioner Family | DX: M79.89 Other specified soft tissue disorders (principal) ==

== ENCOUNTER → 2021-01-17 | Outpatient (CLI) | payer OTHER | LOC: M.CT 01-10 13:00 | PROVIDERS: ATTEND Internal Medicine Cardiovascular Disease | DX: Z13.6 Encounter for screening for cardiovascular disorders (principal); I25.10 Atherosclerotic heart disease of native coronary artery without angina pectoris ==

== ENCOUNTER → 2021-01-17 | Outpatient (CLI) | payer OTHER ==
--- NOTE | 2021-01-17 16:22 | 2DMMODE ---
[place] [address] 2 D/M-MODE ECHOCARDIOGRAM Name: DMITRY TRUJILLO Room: [facility]#: [id number] Admission: 01/17/21 Attend Phys: Sergei Mata MD Discharge: Date of : 52 Date of Service: 01/17/21 1622 Report #: [id number] THIS REPORT FOR: cc: Madeleine Hyde MD, Katrina MD Holkins,Renny Ardon MD [facility] ~ APPROVED REPORT Study performed: 01/17/2021 13:55:05 EXAM: Comprehensive 2D, Doppler, and color-flow Echocardiogram Patient Location: Out-Patient BSA: 1.98 HR: 75 bpm BP: 130/82 mmHg Other Information Study Quality: Good Indications Chest Pain 2D Dimensions IVSd: 11.56 (7-11mm) LVOT Diam: 21.27 (18-24mm) LVDd: 53.14 mm PWd: 11.66 (7-11mm) Ascending Ao: 32.44 (22-36mm) LVDs: 26.01 (25-40mm) Aortic Root: 29.67 mm Volumes Left Atrial Volume (Systole) LA ESV Index: 20.70 mL/m2 Aortic Valve AoV Peak Jose.: 1.82 m/s AO Peak Gr.: 13.27 mmHg LVOT Max P.25 mmHg AO Mean Gr.: 7.13 mmHg LVOT Mean P.69 mmHg LVOT Max V: 1.03 m/s AO V2 VTI: 35.87 cm LVOT Mean V: 0.58 m/s YOU (VTI): 1.89 cm2 LVOT V1 VTI: 19.13 cm Mitral Valve E/A Ratio: 0.71 [place] [address] 2 D/M-MODE ECHOCARDIOGRAM Name: DMITRY TRUJILLO Room: [facility]#: [id number] Admission: 01/17/21 Attend Phys: Segrei Mata MD Discharge: Date of : 52 Date of Service: 01/17/21 1622 Report #: [id number] MV Decel. Time: 215.48 ms MV E Max Jose.: 0.66 m/s MV PHT: 62.49 ms MVA (PHT): 3.52 cm2 TDI E/Lateral E': 8.25 E/Medial E': 8.25 Medial E' Jose.: 0.08 m/s Lateral E' Jose.: 0.08 m/s Pulmonary Valve PV Peak Jose.: 0.89 m/s PV Peak Gr.: 3.14 mmHg Left Ventricle The left ventricle is normal size. There is normal LV segmental wall motion. There is normal left ventricular wall thickness. Left ventricular systolic function is normal. The left ventricular ejection fraction is within the normal range. LVEF is 60%. Grade I - abnormal relaxation pattern. Right Ventricle The right ventricle is normal size. The right ventricular systolic function is normal. Atria The left atrium size is normal. The right atrium size is normal. Aortic Valve Mild aortic valve sclerosis. Trace aortic regurgitation. There is no aortic valvular stenosis. Mitral Valve The mitral valve is normal in structure. There is no mitral valve regurgitation noted. No evidence of mitral valve stenosis. Tricuspid Valve The tricuspid valve is normal in structure. There is no tricuspid valve regurgitation noted. Pulmonic Valve The pulmonary valve is normal in structure. Mild pulmonic regurgitation. Great Vessels The aortic root is normal in size. IVC [place] [address] 2 D/M-MODE ECHOCARDIOGRAM Name: CASSANDRADMITRY LEE Room: [facility] KhadarArvin#: [id number] Admission: 01/17/21 Attend Phys: Sergei Mata MD Discharge: Date of : 52 Date of Service: 01/17/21 1622 Report #: [id number] collapses >50% with inspiration. Pericardium There is no pericardial effusion. <Conclusion> The left ventricle is normal size. There is normal left ventricular wall thickness. Left ventricular systolic function is normal. The left ventricular ejection fraction is within the normal range. LVEF is 60%. Grade I - abnormal relaxation pattern. The right ventricle is normal size. The left atrium size is normal. Mild aortic valve sclerosis. Trace aortic regurgitation. There is no aortic valvular stenosis. The mitral valve is normal in structure. The tricuspid valve is normal in structure. IVC is normal in size and collapses >50% with inspiration. There is no pericardial effusion. There is normal LV segmental wall motion. <ELECTRONICALLY SIGNED> By: Renny Courtney MD, [facility] 01/17/21 1622 162 [id number] Renny Courtney MD, FACC /INF
== END ==
LOC: M.CRD 01-10 09:00
PROVIDERS: ATTEND Internal Medicine Cardiovascular Disease
DX: I08.8 Other rheumatic multiple valve diseases (principal); J43.9 Emphysema, unspecified

== ENCOUNTER → 2021-03-20 | Outpatient (CLI) | payer OTHER ==
[~2021-03-20] MED LIST changes: +MEDROLDOSEPACK PO; +NORCO7.5 PO; +ROXICODONE5 M2 PO
== END ==
LOC: M.PC 11:15
PROVIDERS: ATTEND Anesthesiology Pain Medicine
DX: M47.26 Other spondylosis with radiculopathy, lumbar region (principal); M25.551 Pain in right hip; M79.662 Pain in left lower leg; G89.29 Other chronic pain; Z96.653 Presence of artificial knee joint, bilateral; Z88.0 Allergy status to penicillin; Z88.8 Allergy status to other drugs, medicaments and biological substances; Z79.899 Other long term (current) drug therapy

== ENCOUNTER → 2021-04-17 | Outpatient (CLI) | payer OTHER | LOC: M.PC 09:06 | PROVIDERS: ATTEND Anesthesiology Pain Medicine | DX: M47.26 Other spondylosis with radiculopathy, lumbar region (principal); G89.29 Other chronic pain; R10.2 Pelvic and perineal pain; Z98.890 Other specified postprocedural states ==

== ENCOUNTER → 2021-05-02 | Outpatient (CLI) | payer OTHER | LOC: M.RAD 09:32 | PROVIDERS: ATTEND Family Medicine | DX: Z12.31 Encounter for screening mammogram for malignant neoplasm of breast (principal) ==

== ENCOUNTER → 2021-05-03 | Outpatient (CLI) | payer OTHER | END | disposition home or self-care (01) | LOC: M.PC 09:02 | PROVIDERS: ATTEND Anesthesiology Pain Medicine | DX: M54.16 Radiculopathy, lumbar region (principal); M47.897 Other spondylosis, lumbosacral region; G89.29 Other chronic pain; J44.9 Chronic obstructive pulmonary disease, unspecified; F17.210 Nicotine dependence, cigarettes, uncomplicated; Z98.890 Other specified postprocedural states; Z79.899 Other long term (current) drug therapy; Z96.653 Presence of artificial knee joint, bilateral; Z90.710 Acquired absence of both cervix and uterus; Z90.49 Acquired absence of other specified parts of digestive tract; Z88.0 Allergy status to penicillin; Z91.041 Radiographic dye allergy status ==